=== PATIENT | male | born 1940 ===

== ENCOUNTER 2019-12-26 05:50 | Day surgery (SDC) | payer OTHER ==
[~2019-12-26 05:50] MED LIST: CARBIDOPA-LEVO1 EAC1 PO; FENOFIBRATE150 MG PO; INDERAL XL80 MG PO; XARELTO15 MG PO; [UNRECOGNIZED DRUG - OTHER] PO
[2019-12-26] MEDS ORDERED: PERCOCET 5-3251 EACH PO (09:24)
[2019-12-26] MEDS ORDERED: RECTICARE30 GM TOP (09:25)
== END 2019-12-26 20:40 | disposition home or self-care (01) ==
LOC: CIR.AMB 05:50
DX: K64.8 Other hemorrhoids (principal); K64.3 Fourth degree hemorrhoids